=== PATIENT | male | born 1955 | race Caucasian/White ===

== ENCOUNTER 2022-04-21 07:55 | Outpatient (CLI) | payer OTHER, SELFPAY | END 2022-04-21 07:56 | disposition home or self-care (01) | LOC: INJ CL 07:58 | PROVIDERS: PCP Family Medicine; Visit Provider Family Medicine | DX: M54.16 Radiculopathy, lumbar region (principal); M51.36 Other intervertebral disc degeneration, lumbar region | CPT/HCPCS: 64483; J1100; Q9966 ==

== ENCOUNTER 2022-04-21 16:45 | Outpatient (RCR) | payer BC, SELFPAY | END 2023-02-18 23:59 | disposition home or self-care (01) | PROVIDERS: PCP Family Medicine; Visit Provider Family Medicine | DX: M25.511 Pain in right shoulder (principal); Z51.89 Encounter for other specified aftercare | CPT/HCPCS: 97110; 97140; 97162 ==

== ENCOUNTER 2022-07-01 10:22 | Day surgery (SDC) | payer OTHER, SELFPAY ==
[2022-07-01] MEDS: KETOROLAC OPHTH 0.5% 1 DROP EYE-LEFT ×4 (10:45→10:55)
[2022-07-01] MEDS: TETRACAINE 0.5% OPHTH 2 DROP EYE-LEFT (10:49)
[2022-07-01 10:54] VITALS: BP 144/86; PULSE 74; RESP 16; TEMP 37.3; O2SAT 97
[2022-07-01] MEDS: BALANCED SALT IRRIG SOLN 15 ML EYE-LEFT (10:58)
--- NOTE | 2022-07-01 11:13 | SUR.PREOP ---
The eye drops brought by the patient (Ketorolac and Prednisolone) are examined and I have determined they are labeled by the patient's pharmacy for this patient as prescribed by the surgeon. The bottles are intact, recently obtained and appear to be correct. [id number]
[2022-07-01 11:14] VITALS: BMI 28.4
[2022-07-01] MEDS: lidocaine HCL 2 % MULTIDOSE 20 ML VIAL 5 ML INJECTION (11:54)
[2022-07-01] MEDS: HYALURONIDASE,OVINE 200 UNIT/ML VIAL 120 UNIT INJECTION (11:54)
--- NOTE | 2022-07-01 11:56 | W.ANESCHARGE ---
Anesthesia Charges Start Date/Time Anesthesia Start Date: 07/01/22 Anesthesia Start Time: 11:44 Stop Date/Time Anesthesia Stop Date: 07/01/22 Anesthesia Stop Time: 12:19 Summary Emergency: No
[2022-07-01] MEDS: BRIMONIDINE TARTRATE 0.2% OPHTH 1 DROP EYE-LEFT (12:11)
--- NOTE | 2022-07-01 12:16 | P.PCN_ITS ---
Procedure Note Date Seen: 07/01/22 Will [facility] bill your pro fee for this procedure?: No Procedure: Insert right Kelman Procedure Description: Operative procedure right eye was dilated 1% Mydriacyl 2-1/2% phenylephrine Vigamox [place] time-out sterile prep and drape lid speculum paracentesis 6:00 a.m. 0 VD keratome continuous capsulotomy hydro dissect local chop in capsule cortex removed 0 VD instilled Iol Z [id number] 0 VD removed incision hydrated leak free collagen shield Vigamox patch shield Surgeon: Cecilio Joseph MD
[2022-07-01 12:19] VITALS: BP 129/84; PULSE 68; RESP 16; TEMP 37; O2SAT 94
--- NOTE | 2022-07-01 12:20 | W.ANESCHARGE ---
Anesthesia Charges Start Date/Time Anesthesia Start Date: 07/01/22 Anesthesia Start Time: 11:44 Stop Date/Time Anesthesia Stop Date: 07/01/22 Anesthesia Stop Time: 12:19 Summary Emergency: No
== END 2022-07-01 13:20 | disposition home or self-care (01) ==
PROVIDERS: PCP Family Medicine; Visit Provider Ophthalmology
PROC: (CPT 66984; principal; 2022-07-01 11:30)
DX: H25.811 Combined forms of age-related cataract, right eye (principal)
CPT/HCPCS: 66984; 00142; A9270; J2250; J2704; J3010; J3471; S0020; V2632